=== PATIENT | female | born 1960 | race Caucasian/White ===

== ENCOUNTER 2016-11-11 10:26 | Day surgery (SDC) | payer BC ==
[~2016-11-11 10:26] MED LIST: AMBIEN10 M1 PO; CYCLOBENZAPRINE10 M1 PO; FIORICET 50-301 EAC1 PO; FIORICET1 TA1 PO; HORMONE; K-DUR20 MEQ/TA1 NG; LORTAB 10/5001 EA PO; LOTEMAX5 M1 EACH EYE; MAXZIDE1 TA2 PO; NEURONTIN300 MG PO; NEURONTIN600 M1 PO; OMEPRAZOLE40 M2 PO; PERCOCET 10-321 EACH PO; PERCOCET 5-3251 EACH PO; PREDNISONE1 MG PO; PRILOSEC OTC20 MG PO; PRILOSEC40 MG PO; RAYOS2 M1 PO; REGLAN10 M2 PO; SAVELLA50 M1 PO; SAVELLA50 MG PO; SYNTHROID25 MCG PO; TRI ESTARYLLA PO; XANAX0.5 M1 PO; ZYRTEC-D TABLE1 EAC1 PO; ZYRTEC-D TABLE1 EACH PO
[2016-11-11 11:38] LABS: BASO % 0.6 % (0-2); EOS % 2.5 % (0-7); EOSINOPHIL ABSOLUTE COUNT 0.2 tho/cmm (0.0-0.7); HCT-HEMATOCRIT 38.5 % (34.0-49.0); HGB-HEMOGLOBIN 12.8 gm/dl (12.0-15.5); IMMATURE GRANULOCYTES ABSOLUTE 0.02 tho/cmm (0-0.03); IMMATURE GRANULOCYTES PERCENT 0.3 % (0-0.3); LYMPH % 35.7 % (20-45); LYMPH ABSOLUTE COUNT 2.6 tho/cmm (0.8-4.5); MCH (MEAN CORPUSCULAR HGB) 30.8 pg (28.0-32.0); MCHC MEAN CORPUSCULAR HGB CONC 33.2 % (32.0-36.0); MCV (MEAN CELL VOLUME) 92.8 fl (82.0-96.0); MEAN PLATELET VOLUME 10.5 cmc (9.4-12.4); MONO % 7.8 % (0-12); MONOCYTE ABSOLUTE COUNT 0.6 tho/cmm (0.0-1.2); NEUTROPHIL ABSOLUTE COUNT 3.8 tho/cmm (1.6-8.0); NEUTROPHIL-AUTOMATED 3.8 tho/cmm (1.6-8.0); NEUTROPHILS % 53.1 % (40-80); PLATELET COUNT 353 tho/cmm (150-450); RED BLOOD COUNT 4.15 mil/cmm (4.00-5.20); WHITE BLOOD COUNT 7.2 tho/cmm (4.0-10.0)
[2016-11-11 11:46] LABS: PROTHROMBIN TIME 11.8 SECONDS (9.0-13.6)
== END 2016-11-11 16:15 ==
LOC: SHSB 10:26 → PACU 14:12 → SHSB 14:45
PROVIDERS: Radiology Diagnostic Radiology
PROC: 0PU43JZ Supplement Thoracic Vertebra with Synthetic Substitute, Percutaneous Approach (ICD-10-PCS; principal; 2016-11-11)
DX: M48.54XA Collapsed vertebra, not elsewhere classified, thoracic region, initial encounter for fracture (principal); I10 Essential (primary) hypertension; M81.0 Age-related osteoporosis without current pathological fracture; F41.9 Anxiety disorder, unspecified; F32.9 Major depressive disorder, single episode, unspecified; G43.909 Migraine, unspecified, not intractable, without status migrainosus; Z86.010 Personal history of colon polyps; E03.9 Hypothyroidism, unspecified; Z90.49 Acquired absence of other specified parts of digestive tract; Z90.710 Acquired absence of both cervix and uterus; Z88.2 Allergy status to sulfonamides; Z88.8 Allergy status to other drugs, medicaments and biological substances
CPT/HCPCS: J0690